=== PATIENT | female | born 1990 | race African-American/Black ===

== ENCOUNTER 2019-05-11 18:36 | Emergency (ER) | payer OTHER ==
[~2019-05-11] VITALS: Ht 175.3 cm; Wt 51.3 kg
[2019-05-11] MEDS ORDERED: ZOFRAN ODT4 MG DISSOLVE ×2 (19:01)
[2019-05-11 19:31] LABS: ABSOLUTE NEUTROPHILS 6.1 thou/uL (1.4-8.2); BASOPHILS 0.5 % (0.0-2.0); EOSINOPHILS 0.2 % (0.0-3.0); HEMATOCRIT 36.9 % (37.0-47.0); HEMOGLOBIN 12.2 gm/dL (12.0-15.0); LYMPHOCYTES 19.4 % (24.0-44.0); MCH 30.9 pg (26.0-34.0); MCHC 33.1 g/dL (28.0-37.0); MCV 93.5 fL (80.0-100.0); PLATELET COUNT 333 thou/uL (150-400); POLYS 71.9 % (36.0-66.0); RBC 3.95 mil/uL (4.20-5.00); RDW 13.2 % (10.5-14.5); WBC 8.5 thou/uL (4.0-11.0)
[2019-05-11 19:34] LABS: CALCIUM 9.9 mg/dL (8.5-10.1); CREATININE 0.7 mg/dL (0.6-1.0); POTASSIUM 3.6 mmol/L (3.5-5.1)
[2019-05-11 19:39] LABS: AMP/METHAMP Negative (Negative); BARBITURATES Negative (Negative); BENZODIAZEPINES Negative (Negative); COCAINE Negative (Negative); METHADONE Negative (Negative); OPIATES Negative (Negative); PCP Negative (Negative)
[2019-05-11] MEDS ORDERED: PHENERGAN 25 MG25 M1 PO (20:58)
[2019-05-11] MEDS ORDERED: ZOFRAN ODT4 MG PO (20:58)
[2019-05-11] MEDS ORDERED: ZANTAC 150MG T150 M1 PO (20:59)
[2019-05-11 21:10] VITALS: BP 104/49
[2019-05-12] MEDS ORDERED: PROTONIX40 MG PO
--- NOTE | 2019-05-12 10:02 | EKG ---
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
== END 2019-05-11 21:10 | disposition home or self-care (01) ==
LOC: ER 18:36
PROVIDERS: Nurse Practitioner Family
DX: F12.988 Cannabis use, unspecified with other cannabis-induced disorder (principal); R11.2 Nausea with vomiting, unspecified; R10.13 Epigastric pain

== ENCOUNTER 2019-05-12 15:58 | Emergency (ER) | payer OTHER ==
[~2019-05-12] VITALS: Ht 175.3 cm; Wt 51.3 kg
[~2019-05-12 15:58] MED LIST: PHENERGAN 25 MG25 M1 PO; PROTONIX40 MG PO; ZANTAC 150MG T150 M1 PO; ZOFRAN ODT4 MG DISSOLVE; ZOFRAN ODT4 MG PO
[2019-05-12 16:58] LABS: ABSOLUTE NEUTROPHILS 6.7 thou/uL (1.4-8.2); BASOPHILS 0.6 % (0.0-2.0); EOSINOPHILS 0.3 % (0.0-3.0); HEMATOCRIT 36.6 % (37.0-47.0); HEMOGLOBIN 12.1 gm/dL (12.0-15.0); LYMPHOCYTES 24.9 % (24.0-44.0); MCH 30.8 pg (26.0-34.0); MCHC 33.1 g/dL (28.0-37.0); MCV 92.9 fL (80.0-100.0); MONOCYTES 8.3 % (1.0-8.0); POLYS 65.9 % (36.0-66.0); RBC 3.94 mil/uL (4.20-5.00); RDW 13.1 % (10.5-14.5)
[2019-05-12 17:09] LABS: ANION GAP 15 mmol/L (7-16); BUN 11 mg/dL (7-18); CALCIUM 9.9 mg/dL (8.5-10.1); CHLORIDE 108 mmol/L (98-107); CO2 21 mmol/L (21-32); CREATININE 0.8 mg/dL (0.6-1.0); GLUCOSE 78 mg/dL (74-106); POTASSIUM 3.7 mmol/L (3.5-5.1); SODIUM 144 mmol/L (136-145)
[2019-05-12 17:14] LABS: ALBUMIN 4.5 g/dL (3.4-5.0); SGOT 20 U/L (15-37); SGPT 17 U/L (30-65); TOTAL BILIRUBIN 0.4 mg/dL (<0.1-1.0); TOTAL PROTEIN 7.6 g/dL (6.4-8.2); TROPONIN-I <0.06 ng/mL (<0.06)
[2019-05-12 17:42] LABS: PLATELET COUNT 336 thou/uL (150-400)
[2019-05-12 17:47] LABS: URINE BILIRUBIN NEGATIVE (Negative); URINE BLOOD 2+ (Negative); URINE CLARITY CLEAR; URINE COLOR YELLOW; URINE GLUCOSE-RANDOM* NEGATIVE (Negative); URINE KETONES 1+ (Negative); URINE LEUKOCYTES-REFLEX TRACE (Negative); URINE NITRITE-REFLEX NEGATIVE (Negative); URINE PROTEIN (DIPSTICK) 1+ (Negative); URINE UROBILINOGEN 0.2 E.U./dl (0.2-1.0)
[2019-05-12 18:02] LABS: SQUAMOUS 4-10 Moderate /LPF (0-3)
[2019-05-12 18:03] LABS: URINE RBC 3-10 Few /HPF (0-2); URINE WBC-REFLEX 0-5 Rare /HPF (0-5)
[2019-05-12 18:05] LABS: BACTERIA-REFLEX 1-9 Few /HPF (None Seen); CASTS None Seen /LPF (None Seen); CRYSTALS None Seen /LPF (None Seen)
[2019-05-12 19:48] VITALS: BP 107/59
--- NOTE | 2019-05-12 21:56 | EKG ---
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
--- NOTE | 2019-05-13 12:55 | EKG ---
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 Bilingual: MARY ELLEN : 1990 Requested By: Baylee Smyth Order Number: [id number] MD: Alex Poe Measurements Intervals [place] Rate: 61 P: 71 ID: 179 QRS: 72 QRSD: 75 T: 45 QT: 386 QTc: 389 Interpretive Statements Sinus arrhythmia Normal tracing Compared to ECG 05/12/2019 16:03:09 No significant change was found Electronically Signed On 05-13-2019 12:55:01 DEVELOPMENT REP by Alex Poe [email or web address] <ELECTRONICALLY SIGNED> By: Alex Poe MD, [facility] 05/13/19 1255 2201 00 Alex Poe MD, FACC /EPI
== END 2019-05-12 19:40 | disposition home or self-care (01) ==
LOC: ER 15:58
PROVIDERS: Emergency Medicine
DX: J66.2 Cannabinosis (principal); R11.2 Nausea with vomiting, unspecified; R10.13 Epigastric pain; R07.89 Other chest pain; Z79.899 Other long term (current) drug therapy

== ENCOUNTER 2019-05-12 21:49 | Emergency (ER) | payer OTHER ==
[~2019-05-12] VITALS: Ht 157.5 cm; Wt 54.4 kg
[2019-05-13 00:34] VITALS: BP 128/75
[2019-05-14] MEDS ORDERED: FLAGYL500 M1 PO (12:46)
[2019-05-14] MEDS ORDERED: CARAFATE1 GM/10 ML PO (13:34)
== END 2019-05-13 00:37 | disposition home or self-care (01) ==
LOC: ER 21:49
DX: R07.89 Other chest pain (principal); R10.13 Epigastric pain; R11.2 Nausea with vomiting, unspecified; Z79.899 Other long term (current) drug therapy

== ENCOUNTER 2019-05-14 07:05 | Emergency (ER) | payer OTHER ==
[~2019-05-14] VITALS: Ht 175.3 cm; Wt 51.3 kg
[2019-05-14 07:57] LABS: ABSOLUTE NEUTROPHILS 7.2 thou/uL (1.4-8.2); BASOPHILS 0.8 % (0.0-2.0); EOSINOPHILS 0.3 % (0.0-3.0); HEMATOCRIT 37.6 % (37.0-47.0); HEMOGLOBIN 12.7 gm/dL (12.0-15.0); LYMPHOCYTES 21.9 % (24.0-44.0); MCH 31.5 pg (26.0-34.0); MCHC 33.9 g/dL (28.0-37.0); MCV 92.9 fL (80.0-100.0); MONOCYTES 10.2 % (1.0-8.0); PLATELET COUNT 330 thou/uL (150-400); POLYS 66.8 % (36.0-66.0); RBC 4.05 mil/uL (4.20-5.00); RDW 13.2 % (10.5-14.5); WBC 10.8 thou/uL (4.0-11.0)
[2019-05-14 08:06] LABS: CREATININE 0.8 mg/dL (0.6-1.0); POTASSIUM 3.4 mmol/L (3.5-5.1)
[2019-05-14 08:13] LABS: URINE BLOOD 1+ (Negative); URINE CLARITY CLEAR; URINE COLOR YELLOW; URINE GLUCOSE-RANDOM* NEGATIVE (Negative); URINE KETONES 3+ (Negative); URINE LEUKOCYTES-REFLEX TRACE (Negative); URINE NITRITE-REFLEX NEGATIVE (Negative); URINE PROTEIN (DIPSTICK) 2+ (Negative); URINE SPECIFIC GRAVITY >= 1.030 (1.005-1.035); URINE UROBILINOGEN 0.2 E.U./dl (0.2-1.0)
--- NOTE | 2019-05-14 08:15 | EKG ---
[address] [address] ELECTROCARDIOGRAM REPORT Name: MILADYEMILIO Room #: [facility].Phyllis#: [id number] Admission: Attend Phys: Discharge: Date of : [birth year] Report #: [id number] THIS REPORT FOR: //name// [facility] ED Test Date: 2019-05-14 Test Time: 07:11:08 Pat Name: EMILIO HENNING Department: Room: Gender: F Interventional Nurse: DALE : 1990 Requested By: Brandon Lubin Order Number: [id number] MD: Cj Nguyen Measurements Intervals [place] Rate: 61 P: 75 OR: 157 QRS: 73 QRSD: 74 T: 45 QT: 398 QTc: 401 Interpretive Statements Sinus arrhythmia Probable left atrial enlargement Compared to ECG 05/12/2019 22:01:29 No significant changes Electronically Signed On 05-14-2019 8:15:32 VACUUM FORM OPERATOR by Cj Nguyen [email or web address] <ELECTRONICALLY SIGNED> By: Cj Nguyen MD 05/14/19 0815 0 0 Cj Nguyen MD /MARYANN
[2019-05-14 08:22] LABS: ICTOTEST (BILI CONFIRMATORY) Negative (Negative); URINE BILIRUBIN NEGATIVE (Negative)
[2019-05-14 08:26] LABS: URINE REDUCING SUBSTANCE NEGATIVE
[2019-05-14 08:38] LABS: SQUAMOUS >10 Many /LPF (0-3)
[2019-05-14 08:42] LABS: BACTERIA-REFLEX 1-9 Few /HPF (None Seen); CASTS None Seen /LPF (None Seen); CRYSTALS None Seen /LPF (None Seen); URINE RBC 3-10 Few /HPF (0-2); URINE WBC-REFLEX 6-15 Few /HPF (0-5)
[2019-05-14] MEDS ORDERED: FLAGYL500 M1 PO (12:46)
[2019-05-14] MEDS ORDERED: CARAFATE1 GM/10 ML PO (13:34)
[2019-05-14 13:38] VITALS: BP 127/90
== END 2019-05-14 13:40 | disposition home or self-care (01) ==
LOC: ER 07:05
PROVIDERS: Emergency Medicine
DX: A59.03 Trichomonal cystitis and urethritis (principal); R11.2 Nausea with vomiting, unspecified